=== PATIENT | female | born 1985 | race Caucasian/White ===

== ENCOUNTER → 2019-01-01 | Day surgery (SDC) | payer BC, OTHER ==
[~2019-01-01] MED LIST: Acetaminophen TAB* 325 MG PO PRN; Buffered Lidocaine 1% SYRIN* 1 ML/SYRINGE INTRADERM ONE; Famotidine IV* 10 MG/ML 2 ML (20 mg) IV ONE; Famotidine IV* 10 MG/ML 2 ML (20 mg) ONE; Lactated Ringers 1000 ML Bag* 1,000 ML IV SCH; Lidocaine 2% PF * 5 ML VIAL ONE; Midazolam* 1 MG/ML 5 ML VIAL (5 MG) ONE; Ondansetron INJ* 2 MG/ML VIAL ONE; Propofol* 500 MG/50 ML BTL ONE
[2019-01-01 17:07] VITALS: BP 123/93
--- NOTE | 2019-01-01 23:04 | PRO ---
DATE: 01/01/19 [facility] REFERRING PHYSICIAN: Ami Alvarez NP * PROCEDURE: Upper gastrointestinal endoscopy and biopsy gastric greater curvature for CLOtest and routine histology. INDICATION: This 33-year-old woman with a BMI of 59 comes in for pre-bariatric assessment. She does have some heartburn every so often with dietary indiscretions. When she is on the better end of her dietary range, she tends not to have heartburn. She takes ibuprofen every week or two for ankle or knee pain. She was assessed in the presurgical area. test was negative. She was interviewed by Dr. Hope. ENDOSCOPIST: Levi Huber MD MEDICATIONS: Propofol per Dr. Hope. FINDINGS: She is a morbidly obese woman in the [facility] upright 60 degrees. Sedation was administered. EGD: Larynx - not seen. Esophagus - easily entered and the mucosa was normal in the upper, mid, and lower esophagus with the EG junction at 34 and then there is a small hiatal hernia with the hiatus at 37. There are no erosions and no stricture or scars. Main body of the esophagus was unremarkable. Stomach - generally normal mucosa in the cardia, fundus, body, and proximal antrum. The distal antrum has just a minimal amount of granular change on top of some slightly swollen folds. Changes are minimal. In the main gastric body , 2 biopsies were obtained and a CLOtest. Air retention was poor, she belched very often. There was no gastric retention. Duodenum - the pylorus, bulb, and second through fourth portions were normal. IMPRESSION: 1. Small hiatal hernia. 2. Minimal antral gastritis. 3. Morbid obesity - to have surgery shortly. Addendum: Clotest negative; gastric Bx no HP [id number]/[facility] #: [id number] [facility]
== END | disposition home or self-care (01) ==
LOC: OR 12:11
PROVIDERS: ATTEND Internal Medicine Gastroenterology
DX: Z01.818 Encounter for other preprocedural examination (principal); E66.01 Morbid (severe) obesity due to excess calories; Z68.43 Body mass index [BMI] 50.0-59.9, adult; K29.50 Unspecified chronic gastritis without bleeding; K44.9 Diaphragmatic hernia without obstruction or gangrene; J45.909 Unspecified asthma, uncomplicated; K21.9 Gastro-esophageal reflux disease without esophagitis; G47.33 Obstructive sleep apnea (adult) (pediatric)
CPT/HCPCS: 81025; 87077; 88305; 88342; J2250; J2405; J2704

== ENCOUNTER 2020-08-10 07:30 | Inpatient (IN) ==
[~2020-08-10 07:30] MED LIST changes: -Acetaminophen TAB* 325 MG PO PRN; +Buffered Lidocaine 1% SYRIN 1 ml INTRADERM ONE; -Buffered Lidocaine 1% SYRIN* 1 ML/SYRINGE INTRADERM ONE; +Dexamethasone IV 4 MG/ML VIAL 1 ml VIAL IV SLOW PU ONE; +Famotidine IV 10 MG/ML 2 ml VIAL (20 mg) IV ONE; -Famotidine IV* 10 MG/ML 2 ML (20 mg) IV ONE; -Famotidine IV* 10 MG/ML 2 ML (20 mg) ONE; -Lactated Ringers 1000 ML Bag* 1,000 ML IV SCH; +Lactated Ringers 1000 ml BAG 1,000 ML IV SCH; -Lidocaine 2% PF * 5 ML VIAL ONE; -Midazolam* 1 MG/ML 5 ML VIAL (5 MG) ONE; -Ondansetron INJ* 2 MG/ML VIAL ONE; -Propofol* 500 MG/50 ML BTL ONE
[2020-08-10] MEDS ORDERED: Midazolam 2 mg/2 ml VIAL 1 mg/ml 2 ml VIAL (2 mg) ONE (09:24)
[2020-08-10] MEDS ORDERED: Rocuronium 50 mg VIAL 10 mg/ml 5 ml VIAL (50 mg) ONE ×2 (09:24→10:46)
[2020-08-10] MEDS ORDERED: fentaNYL 250 mcg/5 ml 50 MCG/ML 5 ml VIAL (250 MCG) ONE (09:24)
[2020-08-10] MEDS ORDERED: Lidocaine 2% PF 5 ML VIAL ONE (09:27)
[2020-08-10] MEDS ORDERED: Propofol 10 MG/ML 20 ML BTL ONE (09:42)
[2020-08-10] MEDS ORDERED: ceFAZolin 1 GM ADVAN 1 GM ADDV.VIAL IVPB ONE (10:04)
[2020-08-10] MEDS ORDERED: Heparin 5000 UNITS/ML 1 mL VIAL ONE (10:04)
[2020-08-10] MEDS ORDERED: Dexamethasone IV 4 MG/ML VIAL 1 ml VIAL ONE (10:04)
[2020-08-10] MEDS ORDERED: ceFAZolin 2 GM in NS PREMIX 2 GM/100 ML BAG IVPB ONE (10:05)
[2020-08-10] MEDS ORDERED: Famotidine IV 10 MG/ML 2 ml VIAL (20 mg) ONE (10:05)
[2020-08-10] MEDS ORDERED: Methylene Blue 0.5 % 50 MG/10 ML AMP IV ONE (10:43)
[2020-08-10] MEDS ORDERED: Acetaminophen IV 1 GM/100ML 100 ML ONE (10:46)
[2020-08-10] MEDS ORDERED: Phenylephrine 40 mcg/mL 10mL (400mcg) SYRINGE ONE (11:35)
[2020-08-10] MEDS ORDERED: HYDROmorphone 1 MG/1 ML SYRINGE ONE (12:09)
[2020-08-10] MEDS ORDERED: HYDROcodone/ACET. 7.5/325 LIQ 15 ML UDC PO PRN (13:48)
[2020-08-10] MEDS ORDERED: HYDROmorphone 0.5 MG/0.5 ML SYRINGE IV SLOW PU PRN (13:48)
[2020-08-10] MEDS ORDERED: Naloxone 0.4 mg VIAL 0.4 mg/ml 1 ml VIAL IV PRN (14:04)
[2020-08-10] MEDS ORDERED: fentaNYL 100 mcg/2 ml 50 MCG/ML VIAL IV PRN (14:04)
[2020-08-10] MEDS ORDERED: HYDROmorphone 1 MG/1 ML SYRINGE IV PRN (14:04)
[2020-08-10] MEDS ORDERED: Ondansetron 4 mg VIAL 2 MG/ML 2 ml VIAL ONE ×2 (14:30→15:02)
[2020-08-10] MEDS: Ondansetron 4 mg VIAL 2 MG/ML 2 ml VIAL IV PRN ×2 (14:31→20:39)
[2020-08-10] MEDS: Lactated Ringers 1000 ml BAG 1,000 ML IV SCH (15:15)
[2020-08-10] MEDS: Prochlorperazine 5 mg/ml 2 ml VIAL (10 mg) IV PRN (16:58)
[2020-08-10] MEDS: Heparin 5000 UNITS/ML 1 mL VIAL SUBCUT SCH (20:39)
[2020-08-11] MEDS: Lactated Ringers 1000 ml BAG 1,000 ML IV SCH ×2 (00:02→07:48)
[2020-08-11] MEDS: Prochlorperazine 5 mg/ml 2 ml VIAL (10 mg) IV PRN (02:24)
[2020-08-11] MEDS: Ondansetron 4 mg VIAL 2 MG/ML 2 ml VIAL IV PRN (05:28)
[2020-08-11] MEDS: Heparin 5000 UNITS/ML 1 mL VIAL SUBCUT SCH ×2 (05:28→13:50)
[2020-08-11 15:34] VITALS: BP 108/66
[2020-08-11] MEDS ORDERED: D5W 1/2 NS KCl 20 meq 1000 ml 1,000 ML IV SCH (16:00)
== END 2020-08-11 17:45 | disposition home or self-care (01) | DRG 403 ==
LOC: AA 09:47 → SSU 15:16
PROVIDERS: ADMIT Surgery; ATTEND Surgery